=== PATIENT | female | born 1965 | race Two or more races ===

== ENCOUNTER 2020-10-30 09:25 | Emergency (ER) | payer MEDICAID, OTHER ==
[~2020-10-30] VITALS: Ht 154.9 cm; Wt 104.3 kg
[2020-10-30 10:11] LABS: Basophils # (auto) 0 10 ^3/uL (0-0.2); Basophils % (auto) 0.7 % (0.0-2.0); Eosinophils # (auto) 0.1 10 ^3/uL (0-0.8); Eosinophils % (auto) 1.6 % (0.0-7.0); Hematocrit 48.8 % (36.0-46.0); Hemoglobin 16.2 g/dL (12.2-16.2); Lymphocytes # (auto) 1.2 10 ^3/uL (0.4-5.4); Lymphocytes % (auto) 24.7 % (10.0-50.0); Mean Corpuscular Hemoglobin 28.5 pg (28.0-32.0); Mean Corpuscular Hgb Conc. 33.2 g/dL (32.0-36.0); Mean Corpuscular Volume 85.7 fL (80.0-100.0); Monocytes # (auto) 0.5 10 ^3/uL (0-1.3); Monocytes % (auto) 10.5 % (0.0-12.0); Neutrophils % (auto) 62.5 % (37.0-80.0); Red Cell Distribution Width 13.9 % (11.8-14.3); White Blood Cell 4.8 10^3/uL (4.4-10.8)
[2020-10-30 10:27] LABS: Partial Thromboplastin Time 31.4 sec (23.0-31.2)
[2020-10-30 10:29] LABS: Albumin 3.6 g/dL (3.4-5.0); Anion Gap 6 (5-15); Blood Urea Nitrogen 12 mg/dL (7-18); Calcium 8.7 mg/dL (8.5-10.1); Carbon Dioxide 28 mmol/L (21-32); Chloride 107 mmol/L (98-107); Glucose 87 mg/dL (74-106); Magnesium 2.4 mg/dL (1.6-2.6); Potassium 3.7 mmol/L (3.5-5.1); Sodium 141 mmol/L (136-145)
[2020-10-30 10:36] LABS: Alanine Aminotransferase 85 U/L (13-56); Alkaline Phosphatase 94 U/L (45-117); Aspartate Aminotransferase 65 U/L (15-37); BUN/Creatinine Ratio 14.3; Bilirubin, Total 0.4 mg/dL (0.2-1.0); GFR African American 91 mL/min; GFR Non-African American 75 mL/min; Total Protein 7.6 g/dL (6.4-8.2)
[2020-10-30] MEDS ORDERED: AZITHROMYCIN 500MG/ 250ML 250 ML IV ONE (11:15)
[2020-10-30] MEDS ORDERED: CHOLECALCIFEROL (VITD3) 2,000 UNIT CAP/TAB PO ONE (11:15)
[2020-10-30] MEDS ORDERED: ZINC SULFATE 220mg CAP or TAB PO ONE (11:15)
[2020-10-30] MEDS ORDERED: ASCORBIC ACID 500 MG TAB PO ONE (11:15)
[2020-10-30 14:30] VITALS: BP 133/75
== END 2020-10-30 14:36 | disposition home or self-care (01) ==
LOC: ER 09:25 → EDBD 09:25 → EDUNIT# 09:25 → ER 14:36
DX: U07.1 COVID-19 (principal); M79.18 Myalgia, other site; R74.8 Abnormal levels of other serum enzymes; R07.89 Other chest pain; I10 Essential (primary) hypertension; Z90.710 Acquired absence of both cervix and uterus
CPT/HCPCS: 36415; 71045; 80053; 83605; 83735; 84484; 85025; 85610; 85730; 87040; 87426; 93005; 96365; 96366; 99285; J0456

== ENCOUNTER 2020-11-03 16:12 | Inpatient (IN) | payer MEDICAID ==
[~2020-11-03] VITALS: Ht 154.9 cm; Wt 101.6 kg
[2020-11-03] MEDS ORDERED: CHOLECALCIFEROL (VITD3) 2,000 UNIT CAP/TAB PO ONE (17:00)
[2020-11-03] MEDS ORDERED: ZINC SULFATE 220mg CAP or TAB PO ONE (17:00)
[2020-11-03] MEDS ORDERED: DOXYCYCLINE 100MG/250ML 250 ML IV ONE (17:00)
[2020-11-03] MEDS ORDERED: ASCORBIC ACID 500 MG TAB PO ONE (17:00)
[2020-11-03] MEDS ORDERED: methylPREDNISolone SOD SUCC 125 MG/2 ML VL IV ONE (17:00)
[2020-11-03 17:52] LABS: Basophils # (auto) 0.1 10 ^3/uL (0-0.2); Basophils % (auto) 1.8 % (0.0-2.0); Eosinophils # (auto) 0 10 ^3/uL (0-0.8); Hematocrit 48.7 % (36.0-46.0); Hemoglobin 16.8 g/dL (12.2-16.2); Lymphocytes # (auto) 1.1 10 ^3/uL (0.4-5.4); Lymphocytes % (auto) 21.1 % (10.0-50.0); Mean Corpuscular Hemoglobin 29.2 pg (28.0-32.0); Mean Corpuscular Hgb Conc. 34.5 g/dL (32.0-36.0); Mean Corpuscular Volume 84.8 fL (80.0-100.0); Monocytes # (auto) 0.3 10 ^3/uL (0-1.3); Neutrophils # (auto) 3.8 10 ^3/uL (1.6-8.6); Neutrophils % (auto) 72.1 % (37.0-80.0); Nucleated Red Blood Cells % 0.2 %; Red Blood Cells 5.75 10^6/uL (4.0-5.20); Red Cell Distribution Width 14.2 % (11.8-14.3); White Blood Cell 5.2 10^3/uL (4.4-10.8)
[2020-11-03 18:08] LABS: Calcium 8.2 mg/dL (8.5-10.1); Chloride 105 mmol/L (98-107); Potassium 3.8 mmol/L (3.5-5.1); Sodium 137 mmol/L (136-145)
[2020-11-03] MEDS ORDERED: NITROGLYCERIN 0.4 MG SL TAB SL PRN (18:15)
[2020-11-03] MEDS ORDERED: MORPHINE SULFATE INJECTION 2 MG/ML SYRG IV PRN (18:15)
[2020-11-03 18:18] LABS: Alanine Aminotransferase 99 U/L (13-56); Albumin 3.2 g/dL (3.4-5.0); Alkaline Phosphatase 80 U/L (45-117); Anion Gap 11 (5-15); Aspartate Aminotransferase 107 U/L (15-37); Bilirubin, Total 0.6 mg/dL (0.2-1.0); Blood Urea Nitrogen 16 mg/dL (7-18); CRP High Sensitivity 5.01 mg/dL (< 0.3); Carbon Dioxide 21 mmol/L (21-32); GFR African American 85 mL/min; GFR Non-African American 70 mL/min; Glucose 93 mg/dL (74-106); Total Protein 7.4 g/dL (6.4-8.2)
[2020-11-03] MEDS: ENOXAPARIN SOD 40 MG/0.4 ML SYRINGE SC SCH (18:47)
[2020-11-03] MEDS: cefTRIAXone 1GM/50ML D5W 50 ML IV SCH (18:47)
[2020-11-04 00:13] VITALS: BP 127/76
[2020-11-04] MEDS ORDERED: LOSA-39 PO (01:45)
[2020-11-04 05:00] VITALS: BP 99/60
[2020-11-04 09:00] VITALS: BP 125/61
[2020-11-04] MEDS: cefTRIAXone 1GM/50ML D5W 50 ML IV SCH (11:50)
[2020-11-04] MEDS: ENOXAPARIN SOD 40 MG/0.4 ML SYRINGE SC SCH (11:51)
[2020-11-04] MEDS: ASCORBIC ACID 500 MG TAB PO SCH (11:51)
[2020-11-04] MEDS: CHOLECALCIFEROL (VITD3) 2,000 UNIT CAP/TAB PO SCH (11:51)
[2020-11-04] MEDS: PANTOPRAZOLE 40 MG TAB PO SCH (11:51)
[2020-11-04] MEDS: ZINC SULFATE 220mg CAP or TAB PO SCH (11:51)
[2020-11-04 12:38] VITALS: BP 122/78
[2020-11-04] MEDS ORDERED: LOSARTAN POTASSIUM 50 MG TAB PO ONE (14:45)
[2020-11-04] MEDS: DexAMETHasone SOD PHOS 10MG/1ML VIAL INJ IV SCH (14:53)
[2020-11-04 16:42] VITALS: BP_SYST 121; BP_SYST 125; BP_DIAS 61; BP_DIAS 80
[2020-11-04] MEDS ORDERED: LOPERAMIDE HCL 2 MG CAP PO ONE (18:00)
[2020-11-04 22:00] VITALS: BP 103/63
[2020-11-05 05:07] VITALS: BP 98/65
[2020-11-05 06:01] LABS: Calcium 8.4 mg/dL (8.5-10.1); Potassium 3.8 mmol/L (3.5-5.1)
[2020-11-05 06:04] LABS: BUN/Creatinine Ratio 21.6; Bilirubin, Total 0.4 mg/dL (0.2-1.0)
[2020-11-05] MEDS: ASCORBIC ACID 500 MG TAB PO SCH (08:58)
[2020-11-05] MEDS: ZINC SULFATE 220mg CAP or TAB PO SCH (08:59)
[2020-11-05] MEDS: CHOLECALCIFEROL (VITD3) 2,000 UNIT CAP/TAB PO SCH (08:59)
[2020-11-05] MEDS: PANTOPRAZOLE 40 MG TAB PO SCH (08:59)
[2020-11-05] MEDS: cefTRIAXone 1GM/50ML D5W 50 ML IV SCH (09:00)
[2020-11-05] MEDS: DexAMETHasone SOD PHOS 10MG/1ML VIAL INJ IV SCH (09:00)
[2020-11-05] MEDS: ENOXAPARIN SOD 40 MG/0.4 ML SYRINGE SC SCH (09:00)
[2020-11-05] MEDS: LOSARTAN POTASSIUM 50 MG TAB PO SCH (09:02)
[2020-11-05 09:27] VITALS: BP 129/61
[2020-11-05 13:30] VITALS: BP 119/68
[2020-11-05 16:21] VITALS: BP 114/68
[2020-11-05 22:00] VITALS: BP 116/72
[2020-11-06] VITALS (27 sets, daily range): BP systolic 78–168; BP diastolic 44–114
[2020-11-06 07:30] LABS: Basophils # (auto) 0 10 ^3/uL (0-0.2); Basophils % (auto) 0.2 % (0.0-2.0); Eosinophils # (auto) 0 10 ^3/uL (0-0.8); Hematocrit 46.2 % (36.0-46.0); Hemoglobin 15.5 g/dL (12.2-16.2); Lymphocytes # (auto) 0.7 10 ^3/uL (0.4-5.4); Lymphocytes % (auto) 6.1 % (10.0-50.0); Mean Corpuscular Hemoglobin 28.5 pg (28.0-32.0); Mean Corpuscular Hgb Conc. 33.6 g/dL (32.0-36.0); Mean Corpuscular Volume 84.6 fL (80.0-100.0); Monocytes # (auto) 1.1 10 ^3/uL (0-1.3); Monocytes % (auto) 9.3 % (0.0-12.0); Neutrophils # (auto) 9.9 10 ^3/uL (1.6-8.6); Neutrophils % (auto) 84.4 % (37.0-80.0); Nucleated Red Blood Cells % 0.5 %; Red Blood Cells 5.46 10^6/uL (4.0-5.20); Red Cell Distribution Width 14.4 % (11.8-14.3); White Blood Cell 11.8 10^3/uL (4.4-10.8)
[2020-11-06 07:37] LABS: BUN/Creatinine Ratio 16.3; Calcium 8.3 mg/dL (8.5-10.1); Magnesium 2.8 mg/dL (1.6-2.6); Potassium 3.8 mmol/L (3.5-5.1)
[2020-11-06] MEDS: LOSARTAN POTASSIUM 50 MG TAB PO SCH (09:55)
[2020-11-06] MEDS: DexAMETHasone SOD PHOS 10MG/1ML VIAL INJ IV SCH (09:57)
[2020-11-06] MEDS: ZINC SULFATE 220mg CAP or TAB PO SCH (10:11)
[2020-11-06] MEDS: cefTRIAXone 1GM/50ML D5W 50 ML IV SCH (10:11)
[2020-11-06] MEDS: ENOXAPARIN SOD 40 MG/0.4 ML SYRINGE SC SCH (10:12)
[2020-11-06] MEDS: CHOLECALCIFEROL (VITD3) 2,000 UNIT CAP/TAB PO SCH (10:12)
[2020-11-06] MEDS: PANTOPRAZOLE 40 MG TAB PO SCH (10:12)
[2020-11-06] MEDS: ASCORBIC ACID 500 MG TAB PO SCH (10:12)
[2020-11-06] MEDS ORDERED: cloNIDine HCL 0.1 MG TAB PO PRN (11:00)
[2020-11-06] MEDS: SOD CHL 0.45% 1,000 ML IV SCH (11:03)
[2020-11-06] MEDS ORDERED: SOD CHL 0.45% 500 ML IV ONE ×2 (13:45→16:45)
[2020-11-06] MEDS: ALBUTEROL SULF HFA 90MCG INH 200DOSE IN SCH ×2 (14:27→21:31)
[2020-11-06 15:35] LABS: Urine Bacteria FEW /hpf (None Seen); Urine Blood Negative /uL (Negative); Urine Specific Gravity 1.012 (1.001-1.035); Urine WBC 15 /hpf (0 - 5)
[2020-11-06 15:42] LABS: Protein, Urine 63.5 mg/dL (0.0-11.9)
[2020-11-06] MEDS: NOREPINEPHRINE 8 MG/250ML KIT 250 ML IV SCH (17:15)
[2020-11-06] MEDS ORDERED: NOREPINEPHRINE 8 MG/250ML KIT 250 ML IV ONE (17:31)
[2020-11-06] MEDS: ACETAMINOPHEN 325 MG TAB PO PRN (20:44)
[2020-11-07] VITALS (40 sets, daily range): BP systolic 94–145; BP diastolic 55–96
[2020-11-07 04:07] LABS: Basophils # (auto) 0.1 10 ^3/uL (0-0.2); Basophils % (auto) 0.7 % (0.0-2.0); Eosinophils # (auto) 0 10 ^3/uL (0-0.8); Hematocrit 43.6 % (36.0-46.0); Hemoglobin 14.8 g/dL (12.2-16.2); Lymphocytes # (auto) 0.5 10 ^3/uL (0.4-5.4); Lymphocytes % (auto) 4.5 % (10.0-50.0); Mean Corpuscular Hemoglobin 28.8 pg (28.0-32.0); Mean Corpuscular Hgb Conc. 33.9 g/dL (32.0-36.0); Monocytes # (auto) 0.8 10 ^3/uL (0-1.3); Monocytes % (auto) 6.4 % (0.0-12.0); Neutrophils # (auto) 10.7 10 ^3/uL (1.6-8.6); Neutrophils % (auto) 88.4 % (37.0-80.0); Nucleated Red Blood Cells % 0.3 %; Red Blood Cells 5.13 10^6/uL (4.0-5.20); Red Cell Distribution Width 14.4 % (11.8-14.3); White Blood Cell 12.1 10^3/uL (4.4-10.8)
[2020-11-07 04:21] LABS: BUN/Creatinine Ratio 16.5; Calcium 7.7 mg/dL (8.5-10.1); Potassium 3.8 mmol/L (3.5-5.1)
[2020-11-07] MEDS: SOD CHL 0.45% 1,000 ML IV SCH ×3 (04:24→16:00)
[2020-11-07] MEDS: ALBUTEROL SULF HFA 90MCG INH 200DOSE IN SCH ×3 (06:54→18:58)
[2020-11-07] MEDS: ZINC SULFATE 220mg CAP or TAB PO SCH (09:42)
[2020-11-07] MEDS: DexAMETHasone SOD PHOS 10MG/1ML VIAL INJ IV SCH (09:42)
[2020-11-07] MEDS: CHOLECALCIFEROL (VITD3) 2,000 UNIT CAP/TAB PO SCH (09:42)
[2020-11-07] MEDS: ASCORBIC ACID 500 MG TAB PO SCH (09:42)
[2020-11-07] MEDS: cefTRIAXone 1GM/50ML D5W 50 ML IV SCH (09:42)
[2020-11-07] MEDS: PANTOPRAZOLE 40 MG TAB PO SCH (09:43)
[2020-11-07] MEDS ORDERED: ENOXAPARIN SOD 40 MG/0.4 ML SYRINGE SC SCH (10:00)
[2020-11-07] MEDS: NOREPINEPHRINE 8 MG/250ML KIT 250 ML IV SCH (21:47)
[2020-11-08] VITALS (44 sets, daily range): BP systolic 113–147; BP diastolic 67–94
[2020-11-08] MEDS: SOD CHL 0.45% 1,000 ML IV SCH ×2 (02:19→15:07)
[2020-11-08 04:56] LABS: BUN/Creatinine Ratio 23.2; Calcium 8.3 mg/dL (8.5-10.1); Potassium 3.9 mmol/L (3.5-5.1)
[2020-11-08] MEDS: ALBUTEROL SULF HFA 90MCG INH 200DOSE IN SCH ×3 (06:39→22:37)
[2020-11-08] MEDS: DexAMETHasone SOD PHOS 10MG/1ML VIAL INJ IV SCH (09:41)
[2020-11-08] MEDS: cefTRIAXone 1GM/50ML D5W 50 ML IV SCH (09:41)
[2020-11-08] MEDS: ASCORBIC ACID 500 MG TAB PO SCH (09:42)
[2020-11-08] MEDS: PANTOPRAZOLE 40 MG TAB PO SCH (09:42)
[2020-11-08] MEDS: ZINC SULFATE 220mg CAP or TAB PO SCH (09:42)
[2020-11-08] MEDS: CHOLECALCIFEROL (VITD3) 2,000 UNIT CAP/TAB PO SCH (09:43)
[2020-11-08] MEDS: ENOXAPARIN SOD 30 MG/0.3 ML SYRINGE SC SCH (09:43)
[2020-11-08] MEDS ORDERED: TOCILIZUMAB 400 MG in SODIUM CHL 0.9% 80 ML IV ONE (15:00)
[2020-11-08] MEDS ORDERED: diphenhdrAMINE HCL 50 MG/1 ML VL IV ONE (16:30)
[2020-11-08] MEDS ORDERED: methylPREDNISolone SOD SUCC 40 MG/ML VL IV ONE (16:30)
[2020-11-08] MEDS ORDERED: ACETAMINOPHEN 650 mg PER 20.3 mL UD PO ONE (16:30)
[2020-11-08] MEDS: NOREPINEPHRINE 8 MG/250ML KIT 250 ML IV SCH (17:15)
[2020-11-09] VITALS (45 sets, daily range): BP systolic 110–152; BP diastolic 55–91
[2020-11-09 04:29] LABS: Basophils # (auto) 0 10 ^3/uL (0-0.2); Basophils % (auto) 0.1 % (0.0-2.0); Eosinophils # (auto) 0 10 ^3/uL (0-0.8); Hematocrit 44.5 % (36.0-46.0); Hemoglobin 15.2 g/dL (12.2-16.2); Lymphocytes # (auto) 0.4 10 ^3/uL (0.4-5.4); Lymphocytes % (auto) 5.2 % (10.0-50.0); Mean Corpuscular Hemoglobin 28.8 pg (28.0-32.0); Mean Corpuscular Hgb Conc. 34.1 g/dL (32.0-36.0); Mean Corpuscular Volume 84.3 fL (80.0-100.0); Monocytes # (auto) 0.5 10 ^3/uL (0-1.3); Monocytes % (auto) 6.3 % (0.0-12.0); Neutrophils # (auto) 7.1 10 ^3/uL (1.6-8.6); Neutrophils % (auto) 88.4 % (37.0-80.0); Nucleated Red Blood Cells % 0.3 %; Red Blood Cells 5.28 10^6/uL (4.0-5.20); Red Cell Distribution Width 14.2 % (11.8-14.3); White Blood Cell 8.1 10^3/uL (4.4-10.8)
[2020-11-09] MEDS: SOD CHL 0.45% 1,000 ML IV SCH ×2 (04:45→19:21)
[2020-11-09 04:47] LABS: Albumin 2.2 g/dL (3.4-5.0); BUN/Creatinine Ratio 27.8; Calcium 8.2 mg/dL (8.5-10.1); Potassium 3.9 mmol/L (3.5-5.1)
[2020-11-09 04:54] LABS: Bilirubin, Total 0.2 mg/dL (0.2-1.0); Total Protein 6.7 g/dL (6.4-8.2)
[2020-11-09 05:41] LABS: CRP High Sensitivity 6.72 mg/dL (< 0.3)
[2020-11-09] MEDS: ALBUTEROL SULF HFA 90MCG INH 200DOSE IN SCH ×3 (06:13→22:50)
[2020-11-09] MEDS ORDERED: diphenhdrAMINE HCL 50 MG/1 ML VL IV ONE (10:00)
[2020-11-09] MEDS ORDERED: ACETAMINOPHEN 650 mg PER 20.3 mL UD PO ONE (10:00)
[2020-11-09] MEDS ORDERED: TOCILIZUMAB 400 MG in SODIUM CHL 0.9% 80 ML IV ONE (10:30)
[2020-11-09] MEDS: cefTRIAXone 1GM/50ML D5W 50 ML IV SCH (10:52)
[2020-11-09] MEDS: PANTOPRAZOLE 40 MG TAB PO SCH (10:52)
[2020-11-09] MEDS: DexAMETHasone SOD PHOS 10MG/1ML VIAL INJ IV SCH (10:52)
[2020-11-09] MEDS: ZINC SULFATE 220mg CAP or TAB PO SCH (10:52)
[2020-11-09] MEDS: ENOXAPARIN SOD 30 MG/0.3 ML SYRINGE SC SCH (10:53)
[2020-11-09] MEDS: ASCORBIC ACID 500 MG TAB PO SCH (10:53)
[2020-11-09] MEDS: CHOLECALCIFEROL (VITD3) 2,000 UNIT CAP/TAB PO SCH (10:53)
[2020-11-09] MEDS: NOREPINEPHRINE 8 MG/250ML KIT 250 ML IV SCH (17:15)
[2020-11-09] MEDS: guaiFENesin-DM 100/10mg/5ml SYR PO PRN (21:42)
[2020-11-10] VITALS (42 sets, daily range): BP systolic 113–152; BP diastolic 64–95
[2020-11-10] MEDS: ALBUTEROL SULF HFA 90MCG INH 200DOSE IN SCH ×3 (06:39→19:02)
[2020-11-10] MEDS: SOD CHL 0.45% 1,000 ML IV SCH ×2 (08:45→22:48)
[2020-11-10] MEDS: ASCORBIC ACID 500 MG TAB PO SCH (09:41)
[2020-11-10] MEDS: DexAMETHasone SOD PHOS 10MG/1ML VIAL INJ IV SCH (09:41)
[2020-11-10] MEDS: cefTRIAXone 1GM/50ML D5W 50 ML IV SCH (09:41)
[2020-11-10] MEDS: CHOLECALCIFEROL (VITD3) 2,000 UNIT CAP/TAB PO SCH (09:42)
[2020-11-10] MEDS: ENOXAPARIN SOD 30 MG/0.3 ML SYRINGE SC SCH (09:42)
[2020-11-10] MEDS: ZINC SULFATE 220mg CAP or TAB PO SCH (09:42)
[2020-11-10] MEDS: NOREPINEPHRINE 8 MG/250ML KIT 250 ML IV SCH (17:15)
[2020-11-11] VITALS (49 sets, daily range): BP systolic 103–143; BP diastolic 53–91
[2020-11-11] MEDS: ONDANSETRON HCL 4 MG/2 ML VIAL IV PRN (02:17)
[2020-11-11 04:11] LABS: BUN/Creatinine Ratio 29.6; Calcium 8.1 mg/dL (8.5-10.1); Potassium 3.9 mmol/L (3.5-5.1)
[2020-11-11] MEDS: ALBUTEROL SULF HFA 90MCG INH 200DOSE IN SCH ×3 (06:08→22:00)
[2020-11-11] MEDS: ZINC SULFATE 220mg CAP or TAB PO SCH (10:00)
[2020-11-11] MEDS: DexAMETHasone SOD PHOS 10MG/1ML VIAL INJ IV SCH (10:25)
[2020-11-11] MEDS: cefTRIAXone 1GM/50ML D5W 50 ML IV SCH (10:25)
[2020-11-11] MEDS: ASCORBIC ACID 500 MG TAB PO SCH (10:25)
[2020-11-11] MEDS: CHOLECALCIFEROL (VITD3) 2,000 UNIT CAP/TAB PO SCH (10:25)
[2020-11-11] MEDS: ENOXAPARIN SOD 30 MG/0.3 ML SYRINGE SC SCH (10:26)
[2020-11-11] MEDS: SOD CHL 0.45% 1,000 ML IV SCH (14:08)
[2020-11-11] MEDS: NOREPINEPHRINE 8 MG/250ML KIT 250 ML IV SCH (15:37)
[2020-11-11] MEDS: ARTIFICIAL TEARS 15ml EACHEYE PRN (22:01)
[2020-11-11] MEDS: HYDROcodone-ACET 5/325MG TAB PO PRN (22:03)
[2020-11-12] VITALS (49 sets, daily range): BP systolic 114–150; BP diastolic 55–93
[2020-11-12 03:49] LABS: Calcium 7.9 mg/dL (8.5-10.1); Potassium 4.2 mmol/L (3.5-5.1)
[2020-11-12 03:50] LABS: BUN/Creatinine Ratio 30.9
[2020-11-12] MEDS: SOD CHL 0.45% 1,000 ML IV SCH ×2 (04:44→21:13)
[2020-11-12] MEDS: ALBUTEROL SULF HFA 90MCG INH 200DOSE IN SCH ×3 (06:38→22:34)
[2020-11-12] MEDS ORDERED: ENOXAPARIN SOD 40 MG/0.4 ML SYRINGE SC SCH (10:00)
[2020-11-12] MEDS: CHOLECALCIFEROL (VITD3) 2,000 UNIT CAP/TAB PO SCH (10:23)
[2020-11-12] MEDS: ZINC SULFATE 220mg CAP or TAB PO SCH (10:23)
[2020-11-12] MEDS: ASCORBIC ACID 500 MG TAB PO SCH (10:23)
[2020-11-12] MEDS: cefTRIAXone 1GM/50ML D5W 50 ML IV SCH (10:23)
[2020-11-12] MEDS: DexAMETHasone SOD PHOS 10MG/1ML VIAL INJ IV SCH (10:24)
[2020-11-12] MEDS: NOREPINEPHRINE 8 MG/250ML KIT 250 ML IV SCH (17:15)
[2020-11-12] MEDS: ENOXAPARIN SOD 40 MG/0.4 ML SYRINGE SC SCH (23:56)
[2020-11-13] VITALS (40 sets, daily range): BP systolic 103–144; BP diastolic 66–91
[2020-11-13 04:33] LABS: BUN/Creatinine Ratio 31.8; Calcium 8.1 mg/dL (8.5-10.1); Potassium 4.4 mmol/L (3.5-5.1)
[2020-11-13] MEDS: ALBUTEROL SULF HFA 90MCG INH 200DOSE IN SCH ×3 (06:00→20:13)
[2020-11-13] MEDS: SOD CHL 0.45% 1,000 ML IV SCH (09:09)
[2020-11-13] MEDS: DexAMETHasone SOD PHOS 10MG/1ML VIAL INJ IV SCH (09:59)
[2020-11-13] MEDS: cefTRIAXone 1GM/50ML D5W 50 ML IV SCH (09:59)
[2020-11-13] MEDS: CHOLECALCIFEROL (VITD3) 2,000 UNIT CAP/TAB PO SCH (10:00)
[2020-11-13] MEDS: ENOXAPARIN SOD 40 MG/0.4 ML SYRINGE SC SCH ×2 (10:00→22:01)
[2020-11-13] MEDS: ASCORBIC ACID 500 MG TAB PO SCH (10:00)
[2020-11-13] MEDS: ZINC SULFATE 220mg CAP or TAB PO SCH (10:00)
[2020-11-13] MEDS: NOREPINEPHRINE 8 MG/250ML KIT 250 ML IV SCH (17:14)
[2020-11-13] MEDS: Ensure HIGH Protein Chocolate 8oz Bottle PO SCH (18:55)
[2020-11-13 22:17] LABS: Basophils # (auto) 0 10 ^3/uL (0-0.2); Basophils % (auto) 0.3 % (0.0-2.0); Eosinophils # (auto) 0.1 10 ^3/uL (0-0.8); Eosinophils % (auto) 0.6 % (0.0-7.0); Hematocrit 44.8 % (36.0-46.0); Hemoglobin 14.9 g/dL (12.2-16.2); Lymphocytes # (auto) 0.5 10 ^3/uL (0.4-5.4); Lymphocytes % (auto) 4.2 % (10.0-50.0); Mean Corpuscular Hemoglobin 28.1 pg (28.0-32.0); Mean Corpuscular Hgb Conc. 33.3 g/dL (32.0-36.0); Mean Corpuscular Volume 84.3 fL (80.0-100.0); Monocytes # (auto) 0.3 10 ^3/uL (0-1.3); Monocytes % (auto) 2.3 % (0.0-12.0); Neutrophils # (auto) 10.2 10 ^3/uL (1.6-8.6); Neutrophils % (auto) 92.6 % (37.0-80.0); Nucleated Red Blood Cells % 0.1 %; Red Blood Cells 5.31 10^6/uL (4.0-5.20); Red Cell Distribution Width 13.5 % (11.8-14.3)
[2020-11-14] VITALS (35 sets, daily range): BP systolic 101–137; BP diastolic 63–102
[2020-11-14 03:58] LABS: Basophils # (auto) 0 10 ^3/uL (0-0.2); Basophils % (auto) 0.2 % (0.0-2.0); Eosinophils # (auto) 0.2 10 ^3/uL (0-0.8); Eosinophils % (auto) 1.5 % (0.0-7.0); Hematocrit 43.3 % (36.0-46.0); Hemoglobin 14.7 g/dL (12.2-16.2); Lymphocytes # (auto) 0.8 10 ^3/uL (0.4-5.4); Mean Corpuscular Hemoglobin 28.6 pg (28.0-32.0); Mean Corpuscular Hgb Conc. 33.9 g/dL (32.0-36.0); Mean Corpuscular Volume 84.4 fL (80.0-100.0); Monocytes # (auto) 0.3 10 ^3/uL (0-1.3); Monocytes % (auto) 2.7 % (0.0-12.0); Neutrophils # (auto) 10.4 10 ^3/uL (1.6-8.6); Neutrophils % (auto) 88.6 % (37.0-80.0); Nucleated Red Blood Cells % 0.1 %; Red Blood Cells 5.13 10^6/uL (4.0-5.20); Red Cell Distribution Width 13.5 % (11.8-14.3); White Blood Cell 11.7 10^3/uL (4.4-10.8)
[2020-11-14 04:09] LABS: BUN/Creatinine Ratio 38.9; Calcium 8.2 mg/dL (8.5-10.1); Potassium 4.2 mmol/L (3.5-5.1)
[2020-11-14 04:34] LABS: INR 1.2 (0.9-1.15); Partial Thromboplastin Time 32.8 sec (23.0-31.2)
[2020-11-14] MEDS: ALBUTEROL SULF HFA 90MCG INH 200DOSE IN SCH ×2 (06:00→18:30)
[2020-11-14] MEDS: ONDANSETRON HCL 4 MG/2 ML VIAL IV PRN (06:19)
[2020-11-14] MEDS: cefTRIAXone 1GM/50ML D5W 50 ML IV SCH (10:27)
[2020-11-14] MEDS: Ensure HIGH Protein Chocolate 8oz Bottle PO SCH ×3 (10:27→18:00)
[2020-11-14] MEDS: DexAMETHasone SOD PHOS 10MG/1ML VIAL INJ IV SCH (10:27)
[2020-11-14] MEDS: ZINC SULFATE 220mg CAP or TAB PO SCH (10:27)
[2020-11-14] MEDS: ASCORBIC ACID 500 MG TAB PO SCH (10:27)
[2020-11-14] MEDS: CHOLECALCIFEROL (VITD3) 2,000 UNIT CAP/TAB PO SCH (10:27)
[2020-11-14] MEDS: ENOXAPARIN SOD 40 MG/0.4 ML SYRINGE SC SCH ×2 (10:28→22:00)
[2020-11-14] MEDS: NOREPINEPHRINE 8 MG/250ML KIT 250 ML IV SCH (16:56)
[2020-11-14] MEDS: HYDROcodone-ACET 5/325MG TAB PO PRN (20:37)
[2020-11-15] VITALS (34 sets, daily range): BP systolic 99–128; BP diastolic 60–85
[2020-11-15 04:02] LABS: Basophils # (auto) 0 10 ^3/uL (0-0.2); Basophils % (auto) 0.2 % (0.0-2.0); Eosinophils # (auto) 0.1 10 ^3/uL (0-0.8); Eosinophils % (auto) 0.9 % (0.0-7.0); Hematocrit 42.2 % (36.0-46.0); Hemoglobin 14.3 g/dL (12.2-16.2); Lymphocytes # (auto) 0.7 10 ^3/uL (0.4-5.4); Lymphocytes % (auto) 5.8 % (10.0-50.0); Mean Corpuscular Hemoglobin 28.8 pg (28.0-32.0); Mean Corpuscular Volume 84.8 fL (80.0-100.0); Monocytes # (auto) 0.4 10 ^3/uL (0-1.3); Monocytes % (auto) 3.6 % (0.0-12.0); Neutrophils # (auto) 11.1 10 ^3/uL (1.6-8.6); Neutrophils % (auto) 89.5 % (37.0-80.0); Red Blood Cells 4.97 10^6/uL (4.0-5.20); Red Cell Distribution Width 13.6 % (11.8-14.3); White Blood Cell 12.4 10^3/uL (4.4-10.8)
[2020-11-15 04:25] LABS: BUN/Creatinine Ratio 31.8; Calcium 8.4 mg/dL (8.5-10.1); Potassium 4.2 mmol/L (3.5-5.1)
[2020-11-15] MEDS: ALBUTEROL SULF HFA 90MCG INH 200DOSE IN SCH ×3 (06:12→22:00)
[2020-11-15] MEDS: Ensure HIGH Protein Chocolate 8oz Bottle PO SCH ×3 (07:26→18:00)
[2020-11-15] MEDS: cefTRIAXone 1GM/50ML D5W 50 ML IV SCH (07:53)
[2020-11-15] MEDS: ZINC SULFATE 220mg CAP or TAB PO SCH (07:53)
[2020-11-15] MEDS: DexAMETHasone SOD PHOS 10MG/1ML VIAL INJ IV SCH (07:53)
[2020-11-15] MEDS: ENOXAPARIN SOD 40 MG/0.4 ML SYRINGE SC SCH ×2 (07:53→21:13)
[2020-11-15] MEDS: CHOLECALCIFEROL (VITD3) 2,000 UNIT CAP/TAB PO SCH (07:54)
[2020-11-15] MEDS: ASCORBIC ACID 500 MG TAB PO SCH (07:54)
[2020-11-15] MEDS: D5W 5% 1,000 ML IV SCH ×2 (10:37→21:48)
[2020-11-15] MEDS: ALPRAZolam 0.25 MG TAB PO PRN ×3 (10:45→20:15)
[2020-11-15] MEDS: AZITHROMYCIN 500MG/ 250ML 250 ML IV SCH (10:45)
[2020-11-15] MEDS: PANTOPRAZOLE 40 MG TAB PO SCH (10:45)
[2020-11-15] MEDS: NOREPINEPHRINE 8 MG/250ML KIT 250 ML IV SCH (16:13)
[2020-11-16] VITALS (31 sets, daily range): BP systolic 86–119; BP diastolic 49–79
[2020-11-16 04:39] LABS: Basophils # (auto) 0.3 10 ^3/uL (0-0.2); Eosinophils # (auto) 0.3 10 ^3/uL (0-0.8); Eosinophils % (auto) 2.1 % (0.0-7.0); Hematocrit 44.1 % (36.0-46.0); Hemoglobin 14.4 g/dL (12.2-16.2); Lymphocytes # (auto) 0.8 10 ^3/uL (0.4-5.4); Lymphocytes % (auto) 5.6 % (10.0-50.0); Mean Corpuscular Hemoglobin 27.8 pg (28.0-32.0); Mean Corpuscular Hgb Conc. 32.7 g/dL (32.0-36.0); Monocytes # (auto) 0.2 10 ^3/uL (0-1.3); Monocytes % (auto) 1.6 % (0.0-12.0); Neutrophils % (auto) 88.7 % (37.0-80.0); Nucleated Red Blood Cells % 0.1 %; Red Blood Cells 5.19 10^6/uL (4.0-5.20); Red Cell Distribution Width 13.6 % (11.8-14.3); White Blood Cell 13.5 10^3/uL (4.4-10.8)
[2020-11-16 04:40] LABS: BUN/Creatinine Ratio 33.3; Calcium 8.3 mg/dL (8.5-10.1); Potassium 3.9 mmol/L (3.5-5.1)
[2020-11-16] MEDS: ALBUTEROL SULF HFA 90MCG INH 200DOSE IN SCH ×2 (06:00→20:35)
[2020-11-16] MEDS: ALPRAZolam 0.25 MG TAB PO PRN ×2 (06:32→17:35)
[2020-11-16] MEDS: Ensure HIGH Protein Chocolate 8oz Bottle PO SCH ×3 (09:09→18:56)
[2020-11-16] MEDS: AZITHROMYCIN 500MG/ 250ML 250 ML IV SCH (11:20)
[2020-11-16] MEDS: ENOXAPARIN SOD 40 MG/0.4 ML SYRINGE SC SCH ×2 (11:21→22:00)
[2020-11-16] MEDS: ZINC SULFATE 220mg CAP or TAB PO SCH (11:44)
[2020-11-16] MEDS: PANTOPRAZOLE 40 MG TAB PO SCH (11:44)
[2020-11-16] MEDS: CHOLECALCIFEROL (VITD3) 2,000 UNIT CAP/TAB PO SCH (11:44)
[2020-11-16] MEDS: ASCORBIC ACID 500 MG TAB PO SCH (11:44)
[2020-11-16] MEDS: NOREPINEPHRINE 8 MG/250ML KIT 250 ML IV SCH (15:13)
[2020-11-17] VITALS (34 sets, daily range): BP systolic 87–120; BP diastolic 51–80
[2020-11-17] MEDS: ALBUTEROL SULF HFA 90MCG INH 200DOSE IN SCH ×3 (06:00→14:10)
[2020-11-17] MEDS: Ensure HIGH Protein Chocolate 8oz Bottle PO SCH ×3 (08:00→18:00)
[2020-11-17] MEDS: ZINC SULFATE 220mg CAP or TAB PO SCH (10:00)
[2020-11-17] MEDS: DexAMETHasone SOD PHOS 10MG/1ML VIAL INJ IV SCH (10:14)
[2020-11-17] MEDS: CHOLECALCIFEROL (VITD3) 2,000 UNIT CAP/TAB PO SCH (10:15)
[2020-11-17] MEDS: ASCORBIC ACID 500 MG TAB PO SCH (10:15)
[2020-11-17] MEDS: PANTOPRAZOLE 40 MG TAB PO SCH (10:15)
[2020-11-17] MEDS: AZITHROMYCIN 500MG/ 250ML 250 ML IV SCH (10:15)
[2020-11-17] MEDS: ENOXAPARIN SOD 40 MG/0.4 ML SYRINGE SC SCH ×2 (10:16→22:16)
[2020-11-17 16:10] LABS: INR 1.18 (0.9-1.15); Partial Thromboplastin Time 31.2 sec (23.0-31.2)
[2020-11-17] MEDS: NOREPINEPHRINE 8 MG/250ML KIT 250 ML IV SCH (17:15)
[2020-11-17] MEDS: ALPRAZolam 0.25 MG TAB PO PRN (18:39)
[2020-11-17] MEDS ORDERED: PPN PER PHARMACY 0 ML IV SCH (19:00)
[2020-11-17] MEDS ORDERED: AMINO ACID INFUSION IN D10W 1,000 ML IV NR (20:00)
[2020-11-18] VITALS (32 sets, daily range): BP systolic 92–129; BP diastolic 51–84
[2020-11-18 04:31] LABS: Basophils # (auto) 0 10 ^3/uL (0-0.2); Basophils % (auto) 0.3 % (0.0-2.0); Eosinophils # (auto) 0 10 ^3/uL (0-0.8); Eosinophils % (auto) 0.2 % (0.0-7.0); Hematocrit 43.2 % (36.0-46.0); Hemoglobin 14.4 g/dL (12.2-16.2); Lymphocytes # (auto) 0.7 10 ^3/uL (0.4-5.4); Lymphocytes % (auto) 7.4 % (10.0-50.0); Mean Corpuscular Hemoglobin 28.5 pg (28.0-32.0); Mean Corpuscular Hgb Conc. 33.3 g/dL (32.0-36.0); Mean Corpuscular Volume 85.7 fL (80.0-100.0); Monocytes # (auto) 0.2 10 ^3/uL (0-1.3); Monocytes % (auto) 2.7 % (0.0-12.0); Neutrophils # (auto) 8.1 10 ^3/uL (1.6-8.6); Neutrophils % (auto) 89.4 % (37.0-80.0); Nucleated Red Blood Cells % 0.1 %; Red Blood Cells 5.04 10^6/uL (4.0-5.20); Red Cell Distribution Width 13.8 % (11.8-14.3); White Blood Cell 9.1 10^3/uL (4.4-10.8)
[2020-11-18 04:53] LABS: Potassium 4.1 mmol/L (3.5-5.1)
[2020-11-18 05:00] LABS: Albumin 2.4 g/dL (3.4-5.0); BUN/Creatinine Ratio 39.7; Bilirubin, Total 0.4 mg/dL (0.2-1.0); Calcium 8.3 mg/dL (8.5-10.1); Magnesium 2.2 mg/dL (1.6-2.6); Phosphorus 3.7 mg/dL (2.5-4.90); Pre Albumin 21.2 mg/dL (20.0-40.0); Total Protein 5.6 g/dL (6.4-8.2)
[2020-11-18] MEDS: ALBUTEROL SULF HFA 90MCG INH 200DOSE IN SCH ×3 (06:00→18:41)
[2020-11-18] MEDS: Ensure HIGH Protein Chocolate 8oz Bottle PO SCH ×3 (08:00→18:00)
[2020-11-18] MEDS ORDERED: AMINO ACID INFUSION IN D10W 1,000 ML IV NR (09:45)
[2020-11-18] MEDS: ZINC SULFATE 220mg CAP or TAB PO SCH (10:00)
[2020-11-18] MEDS: PANTOPRAZOLE 40 MG TAB PO SCH (10:19)
[2020-11-18] MEDS: ENOXAPARIN SOD 40 MG/0.4 ML SYRINGE SC SCH ×2 (10:19→22:00)
[2020-11-18] MEDS: ASCORBIC ACID 500 MG TAB PO SCH (10:19)
[2020-11-18] MEDS: DexAMETHasone SOD PHOS 10MG/1ML VIAL INJ IV SCH (10:20)
[2020-11-18] MEDS: CHOLECALCIFEROL (VITD3) 2,000 UNIT CAP/TAB PO SCH (10:20)
[2020-11-18] MEDS: AZITHROMYCIN 500MG/ 250ML 250 ML IV SCH (10:20)
[2020-11-18] MEDS ORDERED: DEXTROSE (50%) 50ML SYRG IV SCH (12:00)
[2020-11-18] MEDS: ACCU-CHEK COMFORT CURVE STRIP VI SCH ×2 (12:33→18:04)
[2020-11-18] MEDS: InsuLIN REG 1unit/0.01ml Soln (100units/ml) SC SCH ×2 (13:02→18:00)
[2020-11-18] MEDS: ARTIFICIAL TEARS 15ml EACHEYE PRN (13:03)
[2020-11-18] MEDS: NOREPINEPHRINE 8 MG/250ML KIT 250 ML IV SCH (17:15)
[2020-11-18] MEDS ORDERED: PPN PER PHARMACY IV NR ×10 (20:00)
[2020-11-18] MEDS: SODIUM CHLOR 0.9% PF (SALINE LOCK) 10ML VIAL/SYR IV SCH (22:00)
[2020-11-19] VITALS (53 sets, daily range): BP systolic 87–160; BP diastolic 48–86
[2020-11-19] MEDS: ACCU-CHEK COMFORT CURVE STRIP VI SCH ×3 (01:00→13:49)
[2020-11-19] MEDS: InsuLIN REG 1unit/0.01ml Soln (100units/ml) SC SCH ×3 (01:15→13:56)
[2020-11-19 04:22] LABS: Albumin 2.3 g/dL (3.4-5.0); Potassium 3.8 mmol/L (3.5-5.1)
[2020-11-19 04:27] LABS: BUN/Creatinine Ratio 49.1; Bilirubin, Total 0.4 mg/dL (0.2-1.0); Phosphorus 2.7 mg/dL (2.5-4.90); Total Protein 5.1 g/dL (6.4-8.2)
[2020-11-19] MEDS: ALBUTEROL SULF HFA 90MCG INH 200DOSE IN SCH ×3 (07:15→22:44)
[2020-11-19] MEDS: Ensure HIGH Protein Chocolate 8oz Bottle PO SCH ×3 (08:00→18:27)
[2020-11-19] MEDS: ENOXAPARIN SOD 40 MG/0.4 ML SYRINGE SC SCH ×2 (10:00→22:00)
[2020-11-19] MEDS: ASCORBIC ACID 500 MG TAB PO SCH (10:08)
[2020-11-19] MEDS: CHOLECALCIFEROL (VITD3) 2,000 UNIT CAP/TAB PO SCH (10:09)
[2020-11-19] MEDS: DexAMETHasone SOD PHOS 10MG/1ML VIAL INJ IV SCH (10:09)
[2020-11-19] MEDS: SODIUM CHLOR 0.9% PF (SALINE LOCK) 10ML VIAL/SYR IV SCH ×2 (10:09→22:13)
[2020-11-19] MEDS: PANTOPRAZOLE 40 MG TAB PO SCH (10:09)
[2020-11-19] MEDS: AZITHROMYCIN 500MG/ 250ML 250 ML IV SCH (10:10)
[2020-11-19] MEDS: ZINC SULFATE 220mg CAP or TAB PO SCH (10:11)
[2020-11-19] MEDS ORDERED: TPN PER PHARMACY 0 ML IV SCH (12:00)
[2020-11-19] MEDS: NOREPINEPHRINE 8 MG/250ML KIT 250 ML IV SCH (17:15)
[2020-11-19] MEDS ORDERED: TPN PER PHARMACY IV NR ×9 (20:00)
[2020-11-19] MEDS ORDERED: PPN PER PHARMACY IV NR ×9 (20:00)
[2020-11-20] VITALS (64 sets, daily range): BP systolic 109–163; BP diastolic 49–80
[2020-11-20 03:56] LABS: Albumin 2.4 g/dL (3.4-5.0); Calcium 8.1 mg/dL (8.5-10.1); Magnesium 2.1 mg/dL (1.6-2.6); Potassium 5.2 mmol/L (3.5-5.1)
[2020-11-20 04:02] LABS: BUN/Creatinine Ratio 45.5; Bilirubin, Total 0.6 mg/dL (0.2-1.0); Phosphorus 3.6 mg/dL (2.5-4.90); Total Protein 5.2 g/dL (6.4-8.2)
[2020-11-20] MEDS: ACETAMINOPHEN 325 MG TAB PO PRN (05:10)
[2020-11-20 05:32] LABS: INR 1.08 (0.9-1.15); Partial Thromboplastin Time 20.8 sec (23.0-31.2)
[2020-11-20] MEDS: ALBUTEROL SULF HFA 90MCG INH 200DOSE IN SCH ×3 (06:31→22:23)
[2020-11-20] MEDS: ENOXAPARIN SOD 40 MG/0.4 ML SYRINGE SC SCH ×2 (10:00→22:00)
[2020-11-20] MEDS: ZINC SULFATE 220mg CAP or TAB PO SCH (10:00)
[2020-11-20] MEDS: PANTOPRAZOLE 40 MG TAB PO SCH (10:00)
[2020-11-20] MEDS: AZITHROMYCIN 500MG/ 250ML 250 ML IV SCH (10:00)
[2020-11-20] MEDS: CHOLECALCIFEROL (VITD3) 2,000 UNIT CAP/TAB PO SCH (10:00)
[2020-11-20] MEDS: SODIUM CHLOR 0.9% PF (SALINE LOCK) 10ML VIAL/SYR IV SCH ×2 (10:00→22:40)
[2020-11-20] MEDS: ASCORBIC ACID 500 MG TAB PO SCH (10:00)
[2020-11-20] MEDS: DexAMETHasone SOD PHOS 10MG/1ML VIAL INJ IV SCH (11:01)
[2020-11-20] MEDS: Ensure HIGH Protein Chocolate 8oz Bottle PO SCH ×3 (11:03→20:43)
[2020-11-20] MEDS: ALPRAZolam 0.25 MG TAB PO PRN ×2 (16:13→22:39)
[2020-11-20] MEDS: NOREPINEPHRINE 8 MG/250ML KIT 250 ML IV SCH (17:15)
[2020-11-21] VITALS (25 sets, daily range): BP systolic 88–156; BP diastolic 49–76
[2020-11-21 04:01] LABS: Basophils # (auto) 0 10 ^3/uL (0-0.2); Basophils % (auto) 0.1 % (0.0-2.0); Eosinophils # (auto) 0 10 ^3/uL (0-0.8); Hematocrit 38.4 % (36.0-46.0); Hemoglobin 12.8 g/dL (12.2-16.2); Lymphocytes # (auto) 0.5 10 ^3/uL (0.4-5.4); Lymphocytes % (auto) 5.1 % (10.0-50.0); Mean Corpuscular Hemoglobin 28.7 pg (28.0-32.0); Mean Corpuscular Hgb Conc. 33.5 g/dL (32.0-36.0); Mean Corpuscular Volume 85.7 fL (80.0-100.0); Monocytes # (auto) 0.2 10 ^3/uL (0-1.3); Monocytes % (auto) 2.4 % (0.0-12.0); Neutrophils # (auto) 9.4 10 ^3/uL (1.6-8.6); Neutrophils % (auto) 92.4 % (37.0-80.0); Red Blood Cells 4.48 10^6/uL (4.0-5.20); Red Cell Distribution Width 13.8 % (11.8-14.3); White Blood Cell 10.2 10^3/uL (4.4-10.8)
[2020-11-21] MEDS: ALBUTEROL SULF HFA 90MCG INH 200DOSE IN SCH ×3 (06:37→19:01)
[2020-11-21] MEDS: Ensure HIGH Protein Chocolate 8oz Bottle PO SCH ×3 (08:00→18:00)
[2020-11-21] MEDS: ENOXAPARIN SOD 40 MG/0.4 ML SYRINGE SC SCH ×2 (10:00→19:33)
[2020-11-21] MEDS: CHOLECALCIFEROL (VITD3) 2,000 UNIT CAP/TAB PO SCH (10:00)
[2020-11-21] MEDS: ASCORBIC ACID 500 MG TAB PO SCH (10:00)
[2020-11-21] MEDS ORDERED: IOHEXOL 350 MG/ML 100ML IJ ONE (10:08)
[2020-11-21] MEDS: SODIUM CHLOR 0.9% PF (SALINE LOCK) 10ML VIAL/SYR IV SCH ×2 (10:21→19:33)
[2020-11-21] MEDS: AZITHROMYCIN 500MG/ 250ML 250 ML IV SCH (10:21)
[2020-11-21] MEDS: DexAMETHasone SOD PHOS 10MG/1ML VIAL INJ IV SCH (10:21)
[2020-11-21] MEDS: PANTOPRAZOLE 40 MG TAB PO SCH (11:26)
[2020-11-21] MEDS: ZINC SULFATE 220mg CAP or TAB PO SCH (11:26)
[2020-11-21] MEDS: NOREPINEPHRINE 8 MG/250ML KIT 250 ML IV SCH (17:15)
[2020-11-21] MEDS: ALPRAZolam 0.25 MG TAB PO PRN (22:24)
[2020-11-22] VITALS (30 sets, daily range): BP systolic 103–141; BP diastolic 50–85
[2020-11-22 04:59] LABS: Basophils # (auto) 0 10 ^3/uL (0-0.2); Basophils % (auto) 0.7 % (0.0-2.0); Eosinophils # (auto) 0.2 10 ^3/uL (0-0.8); Eosinophils % (auto) 3.5 % (0.0-7.0); Hemoglobin 12.3 g/dL (12.2-16.2); Lymphocytes # (auto) 1.4 10 ^3/uL (0.4-5.4); Lymphocytes % (auto) 19.6 % (10.0-50.0); Mean Corpuscular Hemoglobin 29.3 pg (28.0-32.0); Mean Corpuscular Hgb Conc. 34.1 g/dL (32.0-36.0); Mean Corpuscular Volume 85.9 fL (80.0-100.0); Monocytes # (auto) 0.4 10 ^3/uL (0-1.3); Monocytes % (auto) 5.3 % (0.0-12.0); Neutrophils # (auto) 5.1 10 ^3/uL (1.6-8.6); Neutrophils % (auto) 70.9 % (37.0-80.0); Nucleated Red Blood Cells % 0.1 %; Red Blood Cells 4.19 10^6/uL (4.0-5.20); Red Cell Distribution Width 14.1 % (11.8-14.3); White Blood Cell 7.1 10^3/uL (4.4-10.8)
[2020-11-22 05:15] LABS: Calcium 8.5 mg/dL (8.5-10.1)
[2020-11-22 05:17] LABS: BUN/Creatinine Ratio 36.8; CRP High Sensitivity 0.06 mg/dL (< 0.3)
[2020-11-22] MEDS: ALBUTEROL SULF HFA 90MCG INH 200DOSE IN SCH ×3 (06:32→19:17)
[2020-11-22] MEDS: Ensure HIGH Protein Chocolate 8oz Bottle PO SCH ×3 (08:00→18:08)
[2020-11-22] MEDS: guaiFENesin-DM 100/10mg/5ml SYR PO PRN ×2 (10:00→18:51)
[2020-11-22] MEDS: PANTOPRAZOLE 40 MG TAB PO SCH (10:00)
[2020-11-22] MEDS: ENOXAPARIN SOD 40 MG/0.4 ML SYRINGE SC SCH ×2 (10:00→21:49)
[2020-11-22] MEDS: SODIUM CHLOR 0.9% PF (SALINE LOCK) 10ML VIAL/SYR IV SCH ×2 (10:00→21:48)
[2020-11-22] MEDS: NOREPINEPHRINE 8 MG/250ML KIT 250 ML IV SCH (17:15)
[2020-11-23] VITALS (30 sets, daily range): BP systolic 95–147; BP diastolic 43–81
[2020-11-23 04:32] LABS: Basophils # (auto) 0 10 ^3/uL (0-0.2); Basophils % (auto) 0.6 % (0.0-2.0); Eosinophils # (auto) 0.5 10 ^3/uL (0-0.8); Eosinophils % (auto) 8.3 % (0.0-7.0); Hematocrit 38.3 % (36.0-46.0); Hemoglobin 12.7 g/dL (12.2-16.2); Lymphocytes # (auto) 1.4 10 ^3/uL (0.4-5.4); Lymphocytes % (auto) 22.7 % (10.0-50.0); Mean Corpuscular Hemoglobin 28.7 pg (28.0-32.0); Mean Corpuscular Hgb Conc. 33.2 g/dL (32.0-36.0); Mean Corpuscular Volume 86.3 fL (80.0-100.0); Monocytes # (auto) 0.3 10 ^3/uL (0-1.3); Monocytes % (auto) 5.6 % (0.0-12.0); Neutrophils # (auto) 3.9 10 ^3/uL (1.6-8.6); Neutrophils % (auto) 62.8 % (37.0-80.0); Nucleated Red Blood Cells % 0.5 %; Red Blood Cells 4.44 10^6/uL (4.0-5.20); Red Cell Distribution Width 14.1 % (11.8-14.3); White Blood Cell 6.3 10^3/uL (4.4-10.8)
[2020-11-23 04:44] LABS: BUN/Creatinine Ratio 38.1; Calcium 8.7 mg/dL (8.5-10.1); Potassium 3.8 mmol/L (3.5-5.1)
[2020-11-23] MEDS: ALBUTEROL SULF HFA 90MCG INH 200DOSE IN SCH ×3 (06:50→21:52)
[2020-11-23] MEDS: Ensure HIGH Protein Chocolate 8oz Bottle PO SCH ×3 (08:00→18:00)
[2020-11-23] MEDS: SODIUM CHLOR 0.9% PF (SALINE LOCK) 10ML VIAL/SYR IV SCH ×2 (09:41→21:37)
[2020-11-23] MEDS: ENOXAPARIN SOD 40 MG/0.4 ML SYRINGE SC SCH ×2 (10:00→21:37)
[2020-11-23] MEDS: PANTOPRAZOLE 40 MG TAB PO SCH (10:00)
[2020-11-23] MEDS: ALPRAZolam 0.25 MG TAB PO PRN (11:01)
[2020-11-23] MEDS ORDERED: TEMAZEPAM 15 MG CAP PO PRN (14:45)
[2020-11-23] MEDS: NOREPINEPHRINE 8 MG/250ML KIT 250 ML IV SCH (17:15)
[2020-11-24] VITALS (27 sets, daily range): BP systolic 113–155; BP diastolic 49–87
[2020-11-24] MEDS: TEMAZEPAM 15 MG CAP PO PRN (00:36)
[2020-11-24] MEDS: guaiFENesin-DM 100/10mg/5ml SYR PO PRN (02:29)
[2020-11-24 03:56] LABS: Basophils # (auto) 0 10 ^3/uL (0-0.2); Basophils % (auto) 0.2 % (0.0-2.0); Eosinophils # (auto) 0.8 10 ^3/uL (0-0.8); Hematocrit 37.1 % (36.0-46.0); Hemoglobin 12.8 g/dL (12.2-16.2); Lymphocytes # (auto) 0.9 10 ^3/uL (0.4-5.4); Lymphocytes % (auto) 12.5 % (10.0-50.0); Mean Corpuscular Hemoglobin 29.9 pg (28.0-32.0); Mean Corpuscular Hgb Conc. 34.5 g/dL (32.0-36.0); Mean Corpuscular Volume 86.7 fL (80.0-100.0); Monocytes # (auto) 0.2 10 ^3/uL (0-1.3); Monocytes % (auto) 2.2 % (0.0-12.0); Neutrophils # (auto) 5.7 10 ^3/uL (1.6-8.6); Neutrophils % (auto) 75.1 % (37.0-80.0); Nucleated Red Blood Cells % 0.2 %; Red Blood Cells 4.28 10^6/uL (4.0-5.20); White Blood Cell 7.6 10^3/uL (4.4-10.8)
[2020-11-24 04:15] LABS: Calcium 8.6 mg/dL (8.5-10.1); Potassium 3.7 mmol/L (3.5-5.1)
[2020-11-24 04:17] LABS: BUN/Creatinine Ratio 36.4
[2020-11-24] MEDS: ALBUTEROL SULF HFA 90MCG INH 200DOSE IN SCH ×3 (06:35→22:19)
[2020-11-24] MEDS: Ensure HIGH Protein Chocolate 8oz Bottle PO SCH ×3 (08:00→17:59)
[2020-11-24] MEDS: ENOXAPARIN SOD 40 MG/0.4 ML SYRINGE SC SCH ×2 (10:16→22:13)
[2020-11-24] MEDS: PANTOPRAZOLE 40 MG TAB PO SCH (10:16)
[2020-11-24] MEDS: SODIUM CHLOR 0.9% PF (SALINE LOCK) 10ML VIAL/SYR IV SCH ×2 (10:17→22:13)
[2020-11-24] MEDS: NOREPINEPHRINE 8 MG/250ML KIT 250 ML IV SCH (11:42)
[2020-11-24] MEDS ORDERED: SALINE 0.65 % NASAL SPRAY 45ML BOTTLE EACHNOSTRI PRN (16:30)
[2020-11-24] MEDS: DOCUSATE SOD 100 MG CAP PO SCH (22:14)
[2020-11-25] VITALS (31 sets, daily range): BP systolic 110–152; BP diastolic 60–87
[2020-11-25 04:02] LABS: Hematocrit 36.5 % (36.0-46.0); Hemoglobin 12.3 g/dL (12.2-16.2); Mean Corpuscular Hemoglobin 29.2 pg (28.0-32.0); Mean Corpuscular Hgb Conc. 33.8 g/dL (32.0-36.0); Mean Corpuscular Volume 86.6 fL (80.0-100.0); Red Blood Cells 4.21 10^6/uL (4.0-5.20); White Blood Cell 5.7 10^3/uL (4.4-10.8)
[2020-11-25 04:05] LABS: Basophils % (manual) 0 (0.0-2.0); Blast Cells 0; Myelocytes % 0; Promyelocytes % 0; Reactive Lymphocytes 0
[2020-11-25 04:15] LABS: BUN/Creatinine Ratio 40.4; Calcium 8.4 mg/dL (8.5-10.1); Potassium 3.8 mmol/L (3.5-5.1)
[2020-11-25 05:28] LABS: Band Neutrophils % (manual) 7; Eosinophils % (manual) 11 (0-7); Lymphocytes % (manual) 24 (10.0-50.0); Metamyelocytes % 1; Monocytes % (manual) 2 (0-12)
[2020-11-25] MEDS: ALBUTEROL SULF HFA 90MCG INH 200DOSE IN SCH ×3 (07:32→22:15)
[2020-11-25] MEDS: Ensure HIGH Protein Chocolate 8oz Bottle PO SCH ×3 (08:00→18:00)
[2020-11-25] MEDS: ENOXAPARIN SOD 40 MG/0.4 ML SYRINGE SC SCH ×2 (10:06→22:07)
[2020-11-25] MEDS: SODIUM CHLOR 0.9% PF (SALINE LOCK) 10ML VIAL/SYR IV SCH ×2 (10:06→22:07)
[2020-11-25] MEDS: DOCUSATE SOD 100 MG CAP PO SCH ×2 (10:06→22:07)
[2020-11-25] MEDS: NOREPINEPHRINE 8 MG/250ML KIT 250 ML IV SCH (17:15)
[2020-11-26] VITALS (22 sets, daily range): BP systolic 108–144; BP diastolic 66–85
[2020-11-26 04:58] LABS: Hematocrit 38.7 % (36.0-46.0); Mean Corpuscular Hemoglobin 29.3 pg (28.0-32.0); Mean Corpuscular Hgb Conc. 33.7 g/dL (32.0-36.0); Mean Corpuscular Volume 86.8 fL (80.0-100.0); Red Blood Cells 4.45 10^6/uL (4.0-5.20); Red Cell Distribution Width 14.2 % (11.8-14.3); White Blood Cell 7.1 10^3/uL (4.4-10.8)
[2020-11-26 05:00] LABS: Basophils % (manual) 0 (0.0-2.0); Blast Cells 0; Metamyelocytes % 0; Monocytes % (manual) 0 (0-12); Myelocytes % 0; Promyelocytes % 0; Reactive Lymphocytes 0
[2020-11-26 05:08] LABS: BUN/Creatinine Ratio 38.6; Calcium 8.6 mg/dL (8.5-10.1); Potassium 3.9 mmol/L (3.5-5.1)
[2020-11-26 07:24] LABS: Band Neutrophils % (manual) 2; Eosinophils % (manual) 19 (0-7); Lymphocytes % (manual) 15 (10.0-50.0)
[2020-11-26] MEDS: Ensure HIGH Protein Chocolate 8oz Bottle PO SCH ×3 (08:00→18:00)
[2020-11-26] MEDS ORDERED: cefTRIAXone 1GM/50ML D5W 50 ML IV ONE (09:45)
[2020-11-26] MEDS ORDERED: DexAMETHasone SOD PHOS 10MG/1ML VIAL INJ IV SCH (10:00)
[2020-11-26] MEDS: SODIUM CHLOR 0.9% PF (SALINE LOCK) 10ML VIAL/SYR IV SCH ×2 (10:00→21:47)
[2020-11-26] MEDS: DOCUSATE SOD 100 MG CAP PO SCH ×2 (10:00→21:49)
[2020-11-26] MEDS: ENOXAPARIN SOD 40 MG/0.4 ML SYRINGE SC SCH ×2 (11:03→21:49)
[2020-11-26] MEDS: LACTULOSE 20Gm/30ML SOLN PO SCH ×2 (11:04→21:47)
[2020-11-26] MEDS: NOREPINEPHRINE 8 MG/250ML KIT 250 ML IV SCH (17:15)
[2020-11-26] MEDS: ALBUTEROL SULF HFA 90MCG INH 200DOSE IN SCH (18:35)
[2020-11-27] VITALS (29 sets, daily range): BP systolic 108–156; BP diastolic 47–90
[2020-11-27 05:53] LABS: Hematocrit 36.1 % (36.0-46.0); Hemoglobin 12.4 g/dL (12.2-16.2); Mean Corpuscular Hemoglobin 29.5 pg (28.0-32.0); Mean Corpuscular Hgb Conc. 34.4 g/dL (32.0-36.0); Mean Corpuscular Volume 85.7 fL (80.0-100.0); Red Blood Cells 4.22 10^6/uL (4.0-5.20); Red Cell Distribution Width 14.2 % (11.8-14.3); White Blood Cell 5.4 10^3/uL (4.4-10.8)
[2020-11-27] MEDS: LACTULOSE 20Gm/30ML SOLN PO SCH ×3 (06:00→20:13)
[2020-11-27 06:09] LABS: Basophils % (manual) 0 (0.0-2.0); Blast Cells 0; Metamyelocytes % 0; Myelocytes % 0; Promyelocytes % 0; Reactive Lymphocytes 0
[2020-11-27] MEDS: ALBUTEROL SULF HFA 90MCG INH 200DOSE IN SCH ×3 (06:11→22:13)
[2020-11-27 06:16] LABS: BUN/Creatinine Ratio 39.6; Calcium 8.5 mg/dL (8.5-10.1); Potassium 3.8 mmol/L (3.5-5.1)
[2020-11-27 07:46] LABS: Band Neutrophils % (manual) 2; Eosinophils % (manual) 24 (0-7); Lymphocytes % (manual) 18 (10.0-50.0); Monocytes % (manual) 5 (0-12)
[2020-11-27] MEDS: Ensure HIGH Protein Chocolate 8oz Bottle PO SCH ×3 (08:19→18:05)
[2020-11-27] MEDS: cefTRIAXone 1GM/50ML D5W 50 ML IV SCH (08:20)
[2020-11-27] MEDS ORDERED: FLEET ENEMA(ADULT) 135 ML PR ONE (10:00)
[2020-11-27] MEDS: SODIUM CHLOR 0.9% PF (SALINE LOCK) 10ML VIAL/SYR IV SCH ×2 (10:02→20:13)
[2020-11-27] MEDS: DOCUSATE SOD 100 MG CAP PO SCH ×3 (10:02→21:21)
[2020-11-27] MEDS: ENOXAPARIN SOD 40 MG/0.4 ML SYRINGE SC SCH ×2 (10:03→21:22)
[2020-11-27] MEDS: NOREPINEPHRINE 8 MG/250ML KIT 250 ML IV SCH (15:47)
[2020-11-27] MEDS: TEMAZEPAM 15 MG CAP PO PRN (23:01)
[2020-11-28] VITALS (29 sets, daily range): BP systolic 112–157; BP diastolic 54–83
[2020-11-28 03:54] LABS: Hematocrit 37.5 % (36.0-46.0); Hemoglobin 12.7 g/dL (12.2-16.2); Mean Corpuscular Hemoglobin 29.3 pg (28.0-32.0); Mean Corpuscular Hgb Conc. 33.8 g/dL (32.0-36.0); Mean Corpuscular Volume 86.9 fL (80.0-100.0); Red Blood Cells 4.32 10^6/uL (4.0-5.20); Red Cell Distribution Width 14.6 % (11.8-14.3); White Blood Cell 5.7 10^3/uL (4.4-10.8)
[2020-11-28 04:09] LABS: BUN/Creatinine Ratio 39.6; Calcium 8.5 mg/dL (8.5-10.1); Potassium 3.6 mmol/L (3.5-5.1)
[2020-11-28 04:16] LABS: Basophils % (manual) 0 (0.0-2.0); Blast Cells 0; Metamyelocytes % 0; Myelocytes % 0; Promyelocytes % 0; Reactive Lymphocytes 0
[2020-11-28] MEDS: LACTULOSE 20Gm/30ML SOLN PO SCH (04:56)
[2020-11-28 05:10] LABS: Band Neutrophils % (manual) 4; Eosinophils % (manual) 10 (0-7); Lymphocytes % (manual) 12 (10.0-50.0); Monocytes % (manual) 5 (0-12)
[2020-11-28] MEDS: ALBUTEROL SULF HFA 90MCG INH 200DOSE IN SCH ×3 (06:47→22:26)
[2020-11-28] MEDS: Ensure HIGH Protein Chocolate 8oz Bottle PO SCH ×3 (08:00→19:58)
[2020-11-28] MEDS: cefTRIAXone 1GM/50ML D5W 50 ML IV SCH (09:00)
[2020-11-28] MEDS: SODIUM CHLOR 0.9% PF (SALINE LOCK) 10ML VIAL/SYR IV SCH ×2 (10:00→20:32)
[2020-11-28] MEDS: ENOXAPARIN SOD 40 MG/0.4 ML SYRINGE SC SCH ×2 (10:00→20:33)
[2020-11-28] MEDS: NOREPINEPHRINE 8 MG/250ML KIT 250 ML IV SCH (14:37)
[2020-11-28 14:55] LABS: Urine Bacteria FEW /hpf (None Seen); Urine Blood 1+ /uL (Negative); Urine Mucus MANY (None Seen); Urine Specific Gravity 1.033 (1.001-1.035); Urine WBC 37 /hpf (0 - 5)
[2020-11-28] MEDS: DOCUSATE SOD 100 MG CAP PO SCH (20:32)
[2020-11-28] MEDS: SENNA 8.6 MG TAB PO SCH (20:33)
[2020-11-28] MEDS: TEMAZEPAM 15 MG CAP PO PRN (20:34)
[2020-11-28] MEDS: guaiFENesin-DM 100/10mg/5ml SYR PO PRN (22:14)
[2020-11-29] VITALS (23 sets, daily range): BP systolic 123–147; BP diastolic 57–76
[2020-11-29 03:52] LABS: Hematocrit 36.5 % (36.0-46.0); Hemoglobin 12.4 g/dL (12.2-16.2); Mean Corpuscular Hemoglobin 29.6 pg (28.0-32.0); Mean Corpuscular Hgb Conc. 33.9 g/dL (32.0-36.0); Mean Corpuscular Volume 87.3 fL (80.0-100.0); Red Blood Cells 4.19 10^6/uL (4.0-5.20); Red Cell Distribution Width 14.5 % (11.8-14.3); White Blood Cell 5.1 10^3/uL (4.4-10.8)
[2020-11-29 04:09] LABS: Basophils % (manual) 0 (0.0-2.0); Blast Cells 0; Metamyelocytes % 0; Myelocytes % 0; Promyelocytes % 0; Reactive Lymphocytes 0
[2020-11-29 04:22] LABS: Calcium 7.9 mg/dL (8.5-10.1); Potassium 3.8 mmol/L (3.5-5.1)
[2020-11-29 05:40] LABS: Band Neutrophils % (manual) 6; Eosinophils % (manual) 19 (0-7); Lymphocytes % (manual) 23 (10.0-50.0); Monocytes % (manual) 4 (0-12)
[2020-11-29] MEDS: ALBUTEROL SULF HFA 90MCG INH 200DOSE IN SCH ×3 (06:13→22:00)
[2020-11-29] MEDS: Ensure HIGH Protein Chocolate 8oz Bottle PO SCH ×3 (08:00→18:00)
[2020-11-29] MEDS ORDERED: SODIUM CHLORIDE 0.9% 1,000 ML IV ONE (08:45)
[2020-11-29] MEDS: cefTRIAXone 1GM/50ML D5W 50 ML IV SCH (09:32)
[2020-11-29] MEDS: DOCUSATE SOD 100 MG CAP PO SCH ×2 (10:58→21:03)
[2020-11-29] MEDS: SODIUM CHLOR 0.9% PF (SALINE LOCK) 10ML VIAL/SYR IV SCH ×2 (10:58→21:03)
[2020-11-29] MEDS: ENOXAPARIN SOD 40 MG/0.4 ML SYRINGE SC SCH ×2 (10:59→21:03)
[2020-11-29] MEDS ORDERED: BISACODYL 10 MG RECT SUPP PR ONE (11:00)
[2020-11-29] MEDS: ALPRAZolam 0.25 MG TAB PO PRN (11:01)
[2020-11-29] MEDS: MORPHINE SULFATE INJECTION 2 MG/ML SYRG IV PRN (13:41)
[2020-11-29] MEDS: NOREPINEPHRINE 8 MG/250ML KIT 250 ML IV SCH (14:34)
[2020-11-29] MEDS: SENNA 8.6 MG TAB PO SCH (21:03)
[2020-11-30] VITALS (24 sets, daily range): BP systolic 107–148; BP diastolic 50–77
[2020-11-30] MEDS: TEMAZEPAM 15 MG CAP PO PRN (00:30)
[2020-11-30 05:51] LABS: BUN/Creatinine Ratio 34.1; Calcium 8.4 mg/dL (8.5-10.1); Potassium 3.4 mmol/L (3.5-5.1)
[2020-11-30] MEDS: ALBUTEROL SULF HFA 90MCG INH 200DOSE IN SCH ×3 (07:29→22:35)
[2020-11-30] MEDS: Ensure HIGH Protein Chocolate 8oz Bottle PO SCH ×3 (08:00→18:00)
[2020-11-30] MEDS: cefTRIAXone 1GM/50ML D5W 50 ML IV SCH (08:58)
[2020-11-30] MEDS: ENOXAPARIN SOD 40 MG/0.4 ML SYRINGE SC SCH ×2 (10:00→22:36)
[2020-11-30] MEDS: SODIUM CHLOR 0.9% PF (SALINE LOCK) 10ML VIAL/SYR IV SCH ×2 (10:00→22:36)
[2020-11-30] MEDS: DOCUSATE SOD 100 MG CAP PO SCH ×2 (10:00→22:36)
[2020-11-30] MEDS: MEROPENEM 1GM IVPB 100 ML IV SCH ×2 (14:00→22:35)
[2020-11-30] MEDS: NOREPINEPHRINE 8 MG/250ML KIT 250 ML IV SCH (15:33)
[2020-11-30] MEDS: MORPHINE SULFATE INJECTION 2 MG/ML SYRG IV PRN (22:36)
[2020-11-30] MEDS: SENNA 8.6 MG TAB PO SCH (22:36)
[2020-12-01] VITALS (29 sets, daily range): BP systolic 113–159; BP diastolic 46–83
[2020-12-01 04:17] LABS: Hematocrit 34.7 % (36.0-46.0); Hemoglobin 11.7 g/dL (12.2-16.2); Mean Corpuscular Hemoglobin 29.4 pg (28.0-32.0); Mean Corpuscular Hgb Conc. 33.7 g/dL (32.0-36.0); Mean Corpuscular Volume 87.3 fL (80.0-100.0); Red Blood Cells 3.97 10^6/uL (4.0-5.20); Red Cell Distribution Width 15.1 % (11.8-14.3); White Blood Cell 5.1 10^3/uL (4.4-10.8)
[2020-12-01 04:38] LABS: Albumin 2.6 g/dL (3.4-5.0); Calcium 8.4 mg/dL (8.5-10.1); Potassium 3.2 mmol/L (3.5-5.1)
[2020-12-01 04:40] LABS: Basophils % (manual) 0 (0.0-2.0); Blast Cells 0; Metamyelocytes % 0; Myelocytes % 0; Promyelocytes % 0
[2020-12-01 04:43] LABS: BUN/Creatinine Ratio 34.1; Bilirubin, Total 0.5 mg/dL (0.2-1.0); Total Protein 5.4 g/dL (6.4-8.2)
[2020-12-01 05:28] LABS: Band Neutrophils % (manual) 2; Eosinophils % (manual) 14 (0-7); Lymphocytes % (manual) 24 (10.0-50.0); Monocytes % (manual) 7 (0-12); Reactive Lymphocytes 1
[2020-12-01] MEDS: MEROPENEM 1GM IVPB 100 ML IV SCH ×3 (05:40→21:20)
[2020-12-01] MEDS: ACETAMINOPHEN 325 MG TAB PO PRN (06:10)
[2020-12-01] MEDS: ALBUTEROL SULF HFA 90MCG INH 200DOSE IN SCH ×4 (07:09→21:32)
[2020-12-01] MEDS: Ensure HIGH Protein Chocolate 8oz Bottle PO SCH ×3 (07:56→18:00)
[2020-12-01] MEDS: ENOXAPARIN SOD 40 MG/0.4 ML SYRINGE SC SCH ×2 (10:19→21:20)
[2020-12-01] MEDS: SODIUM CHLOR 0.9% PF (SALINE LOCK) 10ML VIAL/SYR IV SCH ×2 (10:19→21:21)
[2020-12-01] MEDS: DOCUSATE SOD 100 MG CAP PO SCH ×2 (10:19→21:20)
[2020-12-01] MEDS: NOREPINEPHRINE 8 MG/250ML KIT 250 ML IV SCH (15:26)
[2020-12-01] MEDS: SENNA 8.6 MG TAB PO SCH (21:21)
[2020-12-01] MEDS ORDERED: BISACODYL 10 MG RECT SUPP PR ONE (22:30)
[2020-12-02] VITALS (27 sets, daily range): BP systolic 112–159; BP diastolic 53–90
[2020-12-02 05:54] LABS: Basophils # (auto) 0 10 ^3/uL (0-0.2); Basophils % (auto) 0.7 % (0.0-2.0); Eosinophils # (auto) 0.6 10 ^3/uL (0-0.8); Eosinophils % (auto) 14.6 % (0.0-7.0); Hematocrit 34.8 % (36.0-46.0); Hemoglobin 11.7 g/dL (12.2-16.2); Lymphocytes # (auto) 1.1 10 ^3/uL (0.4-5.4); Lymphocytes % (auto) 24.1 % (10.0-50.0); Mean Corpuscular Hemoglobin 29.4 pg (28.0-32.0); Mean Corpuscular Hgb Conc. 33.6 g/dL (32.0-36.0); Mean Corpuscular Volume 87.5 fL (80.0-100.0); Monocytes # (auto) 0.4 10 ^3/uL (0-1.3); Monocytes % (auto) 9.9 % (0.0-12.0); Neutrophils # (auto) 2.2 10 ^3/uL (1.6-8.6); Neutrophils % (auto) 50.7 % (37.0-80.0); Red Blood Cells 3.98 10^6/uL (4.0-5.20); White Blood Cell 4.4 10^3/uL (4.4-10.8)
[2020-12-02] MEDS: MEROPENEM 1GM IVPB 100 ML IV SCH ×3 (05:59→21:47)
[2020-12-02 06:05] LABS: Potassium 3.4 mmol/L (3.5-5.1)
[2020-12-02 06:14] LABS: Albumin 2.7 g/dL (3.4-5.0); BUN/Creatinine Ratio 42.1; Bilirubin, Total 0.5 mg/dL (0.2-1.0); Calcium 8.4 mg/dL (8.5-10.1); Total Protein 5.5 g/dL (6.4-8.2)
[2020-12-02] MEDS: ALBUTEROL SULF HFA 90MCG INH 200DOSE IN SCH ×2 (06:21→21:35)
[2020-12-02] MEDS ORDERED: MAGNESIUM CITRATE SOLUTION 300 ML BTL PO ONE (09:15)
[2020-12-02] MEDS: Ensure HIGH Protein Chocolate 8oz Bottle PO SCH ×3 (10:03→18:00)
[2020-12-02] MEDS: SODIUM CHLOR 0.9% PF (SALINE LOCK) 10ML VIAL/SYR IV SCH ×2 (10:03→21:47)
[2020-12-02] MEDS: ENOXAPARIN SOD 40 MG/0.4 ML SYRINGE SC SCH ×2 (10:04→21:47)
[2020-12-02] MEDS: DOCUSATE SOD 100 MG CAP PO SCH ×2 (10:04→21:47)
[2020-12-02] MEDS: NOREPINEPHRINE 8 MG/250ML KIT 250 ML IV SCH (17:15)
[2020-12-02] MEDS ORDERED: MILK OF MAGNESIA 30ML SUSP PO ONE (18:30)
[2020-12-02] MEDS: SENNA 8.6 MG TAB PO SCH (21:47)
[2020-12-02] MEDS: TEMAZEPAM 15 MG CAP PO PRN (21:48)
[2020-12-03] VITALS (31 sets, daily range): BP systolic 107–148; BP diastolic 50–78
[2020-12-03] MEDS: MEROPENEM 1GM IVPB 100 ML IV SCH ×2 (06:00→14:05)
[2020-12-03] MEDS: ALBUTEROL SULF HFA 90MCG INH 200DOSE IN SCH ×2 (06:22→22:27)
[2020-12-03] MEDS: Ensure HIGH Protein Chocolate 8oz Bottle PO SCH ×3 (08:00→18:00)
[2020-12-03] MEDS: DOCUSATE SOD 100 MG CAP PO SCH ×2 (10:00→22:00)
[2020-12-03] MEDS: SODIUM CHLOR 0.9% PF (SALINE LOCK) 10ML VIAL/SYR IV SCH ×2 (10:08→23:02)
[2020-12-03] MEDS: NOREPINEPHRINE 8 MG/250ML KIT 250 ML IV SCH (17:15)
[2020-12-03] MEDS ORDERED: MILK OF MAGNESIA 30ML SUSP PO PRN (22:00)
[2020-12-03] MEDS: SENNA 8.6 MG TAB PO SCH (22:00)
[2020-12-03] MEDS: TEMAZEPAM 15 MG CAP PO PRN (23:02)
[2020-12-03] MEDS: guaiFENesin-DM 100/10mg/5ml SYR PO PRN (23:02)
[2020-12-04] VITALS (27 sets, daily range): BP systolic 108–156; BP diastolic 57–84
[2020-12-04] MEDS: ONDANSETRON HCL 4 MG/2 ML VIAL IV PRN (00:11)
[2020-12-04] MEDS: ALBUTEROL SULF HFA 90MCG INH 200DOSE IN SCH ×4 (06:23→22:11)
[2020-12-04] MEDS: DOCUSATE SOD 100 MG CAP PO SCH ×2 (11:09→22:17)
[2020-12-04] MEDS: SODIUM CHLOR 0.9% PF (SALINE LOCK) 10ML VIAL/SYR IV SCH ×2 (11:09→22:19)
[2020-12-04] MEDS: NOREPINEPHRINE 8 MG/250ML KIT 250 ML IV SCH (17:15)
[2020-12-04] MEDS: SENNA 8.6 MG TAB PO SCH (22:00)
[2020-12-04] MEDS: TEMAZEPAM 15 MG CAP PO PRN (22:18)
[2020-12-04] MEDS: guaiFENesin-DM 100/10mg/5ml SYR PO PRN (22:18)
[2020-12-04] MEDS: ACETAMINOPHEN 325 MG TAB PO PRN (22:18)
[2020-12-05] VITALS (28 sets, daily range): BP systolic 112–161; BP diastolic 54–95
[2020-12-05] MEDS: ALBUTEROL SULF HFA 90MCG INH 200DOSE IN SCH ×3 (07:26→21:00)
[2020-12-05] MEDS ORDERED: ENOXAPARIN SOD 40 MG/0.4 ML SYRINGE SC ONE (12:45)
[2020-12-05] MEDS: guaiFENesin-DM 100/10mg/5ml SYR PO PRN ×2 (14:17→20:38)
[2020-12-05] MEDS: SODIUM CHLOR 0.9% PF (SALINE LOCK) 10ML VIAL/SYR IV SCH ×2 (16:42→21:12)
[2020-12-05] MEDS: DOCUSATE SOD 100 MG CAP PO SCH (16:52)
[2020-12-05] MEDS: NOREPINEPHRINE 8 MG/250ML KIT 250 ML IV SCH (17:15)
[2020-12-05] MEDS: SENNA 8.6 MG TAB PO SCH (22:00)
[2020-12-06] MEDS ORDERED: ENOXAPARIN SOD 40 MG/0.4 ML SYRINGE SC SCH (10:00)
== END 2020-12-05 23:59 | DRG 137 ==
LOC: ER 16:12 → TELE 18:03 → TELE-EAST 21:32 → ICU WEST 11-06 17:21
PROVIDERS: ADMIT Internal Medicine; ATTEND Internal Medicine
PROC: 02HV33Z Insertion of Infusion Device into Superior Vena Cava, Percutaneous Approach (ICD-10-PCS; principal; 2020-11-18)
PROC: B548ZZA Ultrasonography of Superior Vena Cava, Guidance (ICD-10-PCS; 2020-11-18)
DX: U07.1 COVID-19 (principal); A41.89 Other specified sepsis; J96.01 Acute respiratory failure with hypoxia; J12.82 Pneumonia due to coronavirus disease 2019; N17.9 Acute kidney failure, unspecified; N18.32 Chronic kidney disease, stage 3b; J98.11 Atelectasis; R74.01 Elevation of levels of liver transaminase levels; E66.01 Morbid (severe) obesity due to excess calories; E88.09 Other disorders of plasma-protein metabolism, not elsewhere classified; K59.00 Constipation, unspecified; N39.0 Urinary tract infection, site not specified; Z16.12 Extended spectrum beta lactamase (ESBL) resistance; Y83.8 Other surgical procedures as the cause of abnormal reaction of the patient, or of later complication, without mention of misadventure at the time of the procedure; T82.838A Hemorrhage due to vascular prosthetic devices, implants and grafts, initial encounter; J12.89 Other viral pneumonia; I12.9 Hypertensive chronic kidney disease with stage 1 through stage 4 chronic kidney disease, or unspecified chronic kidney disease; E87.0 Hyperosmolality and hypernatremia; Z68.41 Body mass index [BMI] 40.0-44.9, adult; Z90.710 Acquired absence of both cervix and uterus; Z82.49 Family history of ischemic heart disease and other diseases of the circulatory system; Z80.3 Family history of malignant neoplasm of breast; Z80.9 Family history of malignant neoplasm, unspecified; Z79.899 Other long term (current) drug therapy; Z79.891 Long term (current) use of opiate analgesic; Z79.01 Long term (current) use of anticoagulants
CPT/HCPCS: 36415; 36569; 36600; 71045; 71046; 71275; 74018; 76775; 80048; 80053; 81001; 82040; 82570; 82728; 82805; 82962; 83605; 83735; 83880; 84100; 84156; 84300; 84478; 84484; 85007; 85025; 85027; 85379; 85610; 85730; 86141; 87040; 87081; 87086; 87088; 87186; 87426; 87493; 93005; 93970; 94640; 94660; 94760; 94762; 96365; 96375; 97110; 97116; 97163; 97530; A4615; A4618; G0378; J0696; J1100; J1815; J2185; J2405; J3490; J7131

== ENCOUNTER 2022-04-28 17:36 | Emergency (ER) | payer MEDICAID ==
[~2022-04-28] VITALS: Ht 152.4 cm; Wt 111.0 kg
[~2022-04-28 17:36] MED LIST: LOSA-39 PO
[2022-04-28] MEDS ORDERED: ALBUTEROL SULF 2.5 MG/0.5ML(0.5%) NEB SOLN NEB ONE (18:30)
[2022-04-28] MEDS ORDERED: IPRATROPIUM BROM 0.5 MG/2.5ML INH SOL NEB ONE (18:30)
[2022-04-28] MEDS ORDERED: methylPREDNISolone SOD SUCC 125 MG/2 ML VL IV ONE (18:30)
[2022-04-28 19:39] LABS: Basophils # (auto) 0 10 ^3/uL (0-0.2); Basophils % (auto) 0.5 % (0.0-2.0); Eosinophils # (auto) 0.3 10 ^3/uL (0-0.8); Eosinophils % (auto) 3.9 % (0.0-7.0); Hematocrit 41.7 % (36.0-46.0); Hemoglobin 13.5 g/dL (12.2-16.2); Lymphocytes # (auto) 2.4 10 ^3/uL (0.4-5.4); Lymphocytes % (auto) 33.5 % (10.0-50.0); Mean Corpuscular Hemoglobin 27.4 pg (28.0-32.0); Mean Corpuscular Hgb Conc. 32.3 g/dL (32.0-36.0); Mean Corpuscular Volume 84.8 fL (80.0-100.0); Monocytes # (auto) 0.4 10 ^3/uL (0-1.3); Monocytes % (auto) 5.1 % (0.0-12.0); Nucleated Red Blood Cells % 0.1 %; Red Blood Cells 4.91 10^6/uL (4.0-5.20); Red Cell Distribution Width 13.9 % (11.8-14.3); White Blood Cell 7.1 10^3/uL (4.4-10.8)
[2022-04-28 19:58] LABS: Albumin 3.5 g/dL (3.4-5.0); BUN/Creatinine Ratio 17.6; Calcium 9.1 mg/dL (8.5-10.1); Potassium 3.8 mmol/L (3.5-5.1)
[2022-04-28 20:01] LABS: Bilirubin, Total 0.2 mg/dL (0.2-1.0); Total Protein 6.9 g/dL (6.4-8.2)
[2022-04-29] MEDS ORDERED: methylPREDNISolone SOD SUCC 125 MG/2 ML VL IM ONE (01:45)
[2022-04-29] MEDS ORDERED: PRED20TA2 PO (03:43)
[2022-04-29] MEDS ORDERED: FUROSEMIDE 40 MG TAB PO ONE (04:30)
[2022-04-29 06:45] VITALS: BP 119/73
== END 2022-04-29 06:56 | disposition home or self-care (01) ==
LOC: ER 17:36
DX: R06.00 Dyspnea, unspecified (principal); R05.9 Cough, unspecified; I10 Essential (primary) hypertension; E78.5 Hyperlipidemia, unspecified; Z90.710 Acquired absence of both cervix and uterus; Z20.822 Contact with and (suspected) exposure to COVID-19
CPT/HCPCS: 36415; 36600; 71045; 80053; 82805; 83880; 84484; 85025; 85379; 87426; 87804; 94640; 96372; 99284; J2930; J7644

== ENCOUNTER 2022-10-09 14:04 | Emergency (ER) | payer MEDICAID ==
[~2022-10-09] VITALS: Ht 152.4 cm; Wt 109.0 kg
[~2022-10-09 14:04] MED LIST changes: +PRED20TA2 PO
[2022-10-09 14:47] VITALS: BP 86/42
[2022-10-09] MEDS ORDERED: IPRATROPIUM BROM 0.5 MG/2.5ML INH SOL NEB ONE (15:30)
[2022-10-09] MEDS ORDERED: ALBUTEROL SULF 2.5 MG/0.5ML(0.5%) NEB SOLN NEB ONE (15:30)
[2022-10-09] MEDS ORDERED: methylPREDNISolone SOD SUCC 125 MG/2 ML VL IM ONE (15:30)
[2022-10-09] MEDS ORDERED: cefTRIAXone SOD 1,000 MG VL IM ONE (15:30)
[2022-10-09] MEDS ORDERED: PRED20TA2 PO (16:25)
[2022-10-09] MEDS ORDERED: BENZ100C19 PO (16:25)
[2022-10-09] MEDS ORDERED: LEVO500T31 PO (16:25)
== END 2022-10-09 16:26 | disposition home or self-care (01) ==
LOC: ER 14:04
DX: J20.9 Acute bronchitis, unspecified (principal); J44.0 Chronic obstructive pulmonary disease with (acute) lower respiratory infection; E78.5 Hyperlipidemia, unspecified; I10 Essential (primary) hypertension; Z90.710 Acquired absence of both cervix and uterus
CPT/HCPCS: 71046; 94640; 96372; 99284; J0696; J2930; J7644

== ENCOUNTER 2023-03-18 11:42 | Emergency (ER) | payer MEDICAID ==
[~2023-03-18] VITALS: Ht 162.6 cm; Wt 110.0 kg
[~2023-03-18 11:42] MED LIST changes: +BENZ100C19 PO; +LEVO500T31 PO; -LOSA-39 PO; +LOSA100T58 PO
[2023-03-18] MEDS ORDERED: HYDROcodone-ACET 10/325MG TAB PO ONE (13:45)
[2023-03-18 14:15] LABS: Basophils # (auto) 0.1 10 ^3/uL (0-0.2); Basophils % (auto) 0.4 % (0.0-2.0); Eosinophils # (auto) 0.6 10 ^3/uL (0-0.8); Hematocrit 45.4 % (36.0-46.0); Hemoglobin 14.6 g/dL (12.2-16.2); Lymphocytes # (auto) 1.8 10 ^3/uL (0.4-5.4); Lymphocytes % (auto) 14.6 % (10.0-50.0); Mean Corpuscular Hgb Conc. 32.2 g/dL (32.0-36.0); Mean Corpuscular Volume 86.8 fL (80.0-100.0); Monocytes # (auto) 0.5 10 ^3/uL (0-1.3); Monocytes % (auto) 4.4 % (0.0-12.0); Neutrophils # (auto) 9.1 10 ^3/uL (1.6-8.6); Neutrophils % (auto) 75.6 % (37.0-80.0); Nucleated Red Blood Cells % 0.2 %; Red Blood Cells 5.23 10^6/uL (4.0-5.20); Red Cell Distribution Width 14.1 % (11.8-14.3); White Blood Cell 12.1 10^3/uL (4.4-10.8)
[2023-03-18 14:26] LABS: Alanine Aminotransferase 66 U/L (7-40); Albumin 4.2 g/dL (3.2-4.8); Alkaline Phosphatase 119 U/L (46-116); Anion Gap 5 (5-15); Aspartate Aminotransferase 33 U/L (13-40); BUN/Creatinine Ratio 20.5 (10.0-20.0); Bilirubin, Total 0.7 mg/dL (0.2-1.0); Blood Urea Nitrogen 17 mg/dL (9-23); Carbon Dioxide 30 mmol/L (20-30); Chloride 106 mmol/L (98-107); Glucose 88 mg/dL (74-106); Potassium 3.8 mmol/L (3.5-5.1); Sodium 141 mmol/L (136-145); Total Protein 6.4 g/dL (5.7-8.2)
[2023-03-18 14:30] LABS: INR 0.95 (0.9-1.15); Partial Thromboplastin Time 27.6 SEC (24.5-34.5)
[2023-03-18] MEDS ORDERED: IOHEXOL 350 MG/ML 100ML IJ ONE (14:59)
[2023-03-18] MEDS ORDERED: CEFTRIAXONE SODIUM 2 GM in D5W 5% 100 ML IV ONE (15:45)
[2023-03-18] MEDS ORDERED: DOXY-286 PO (16:32)
[2023-03-18] MEDS ORDERED: ACET-6 PO (16:32)
[2023-03-18] MEDS ORDERED: cefTRIAXone 1GM/50ML D5W 50 ML IV ONE ×2 (22:15→22:45)
[2023-03-19 00:28] VITALS: BP 109/69; PULSE 83; RESP 17; TEMP 98.1
[2023-03-19 00:30] VITALS: O2SAT 98
== END 2023-03-19 00:45 | disposition home or self-care (01) ==
LOC: ER 11:42 → EDBD 11:42 → ER 03-19 00:45
DX: L03.113 Cellulitis of right upper limb (principal); R07.89 Other chest pain; I10 Essential (primary) hypertension; J44.9 Chronic obstructive pulmonary disease, unspecified; E78.5 Hyperlipidemia, unspecified; Z90.710 Acquired absence of both cervix and uterus; Z79.2 Long term (current) use of antibiotics; Z79.899 Other long term (current) drug therapy
CPT/HCPCS: 36415; 71045; 71275; 80053; 83880; 84484; 85025; 85379; 85610; 85730; 93970; 96365; 96366; 99285; J0696; J7060; Q9967

== ENCOUNTER 2023-12-05 12:27 | Emergency (ER) | payer MEDICAID ==
[~2023-12-05] VITALS: Ht 170.2 cm; Wt 109.4 kg
[~2023-12-05 12:27] MED LIST changes: +ACET-6 PO; +DOXY-286 PO; +LOSA-535 PO; -LOSA100T58 PO
[2023-12-05 13:11] VITALS: BP 127/76; PULSE 83; RESP 20; TEMP 98; O2SAT 98
[2023-12-05] MEDS: methylPREDNISolone SOD SUCC 125 MG/2 ML VL IM ONE (13:35)
[2023-12-05] MEDS: KETOROLAC TROMETH 30 MG/ML 1ML VIAL IM ONE (13:35)
[2023-12-05] MEDS ORDERED: NAPR-746 PO (13:57)
[2023-12-05] MEDS ORDERED: METH4PAK PO (13:57)
== END 2023-12-05 13:57 | disposition home or self-care (01) ==
LOC: ER 12:27
DX: M65.4 Radial styloid tenosynovitis [de Quervain] (principal); J44.9 Chronic obstructive pulmonary disease, unspecified; E78.5 Hyperlipidemia, unspecified; I10 Essential (primary) hypertension; Z90.710 Acquired absence of both cervix and uterus
CPT/HCPCS: 29125; 96372; 99284; J1885; J2919

== ENCOUNTER 2025-05-31 15:40 | Emergency (ER) | payer MEDICAID ==
[~2025-05-31] VITALS: Ht 165.1 cm; Wt 96.0 kg
[~2025-05-31 15:40] MED LIST changes: +METH4PAK PO; +NAPR-746 PO
--- NOTE | 2025-05-31 18:30 | DVH ---
LUMBAR SPINE 3 VIEWS REASON FOR EXAM: LOW BACK PAIN COMPARISON: None TECHNIQUE: AP and lateral views of the lumbar spine as well as a magnified lateral view of the lumbosacral junction are obtained. FINDINGS: Five lumbar type vertebra are identified. The vertebral body heights are maintained and there is no evidence of fracture. There is no listhesis. There is moderate disc height loss from T12-L5 with early endplate hypertrophic changes. There is moderate facet joint narrowing at L4-L5 and L5-S1 with hypertrophy. The soft tissues are grossly unremarkable. IMPRESSION: No radiographic evidence of lumbar spine fracture or subluxation. Moderate degenerative disc disease T12-L5. Moderate facet arthropathy L4-S1.
[2025-05-31] MEDS ORDERED: METH-1181 PO (19:42)
[2025-05-31] MEDS ORDERED: METH4PAK PO (19:42)
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
[2025-05-31 19:46] VITALS: BP 126/74; PULSE 79; RESP 15; TEMP 97.8; O2SAT 98
[2025-05-31] MEDS: KETOROLAC TROMETH 60MG/2ML VIAL IM ONE (19:53)
== END 2025-05-31 20:17 | disposition home or self-care (01) ==
LOC: ER 15:40
DX: S33.5XXA Sprain of ligaments of lumbar spine, initial encounter (principal); I10 Essential (primary) hypertension; Z79.899 Other long term (current) drug therapy; Z90.710 Acquired absence of both cervix and uterus; X58.XXXA Exposure to other specified factors, initial encounter; Y93.89 Activity, other specified; Y92.89 Other specified places as the place of occurrence of the external cause; Y99.8 Other external cause status
CPT/HCPCS: 72100; 96372; 99284; J1100; J1885